=== PATIENT | female | born 1950 | race Caucasian/White ===

== ENCOUNTER 2017-09-11 19:09 | Emergency (ER) | payer MEDICARE ==
[2017-09-11] MEDS: predniSONE 10 MG TABLET PO ×2 (19:30→19:54)
[2017-09-11] MEDS: IPRATRPIUM/ALBUTEROL 0.5/2.5MG 3 ML NEBU. NEB (19:34)
[2017-09-11] MEDS ORDERED: predniSONE 10 MG TABLET PO (19:45)
== END 2017-09-11 21:16 | disposition home or self-care (01) ==
LOC: ER 19:09
DX: J40 Bronchitis, not specified as acute or chronic (principal); E03.9 Hypothyroidism, unspecified; F17.210 Nicotine dependence, cigarettes, uncomplicated; Z88.0 Allergy status to penicillin
CPT/HCPCS: 71046; 94640; 99284; J7512; J7620